=== PATIENT | male | born 2000 | race African-American/Black ===

== ENCOUNTER 2020-12-09 01:37 | Emergency (ER) | payer OTHER ==
--- NOTE | 2020-12-09 02:57 | ED Physician Documentation ---
PD HPI HEENT - Stated complaint Stated Complaint: SINUS PRESURE, SOA - Chief complaint Chief Complaint: Heent - History obtained from History obtained from: Patient - History of Present Illness Timing - onset: How many weeks ago (1.5) Timing - details: Gradual onset Pain level now: 0 Location: Sinuses Improves: Nothing Associated symptoms: Congestion, Rhinorrhea, Headache. No: Fever, Cough Recently seen: Not recently seen - Additional information Additional information: c/o 1.5 weeks of bilateral sinus pain associated with sinus congestion and pressure. intermittent difficulty breathing through his nose. Mild sore throat. he has not had improvement with nasocort, pseudofed PE, claritin, and benadryl. Denies fever, cough. Review of Systems Constitutional: denies: Fever, Chills, Sweats Ears: denies: Ear pain Nose: reports: Rhinorrhea / runny nose, Congestion, Sinus pressure / pain Throat: reports: Sore throat (mild) Respiratory: denies: Dyspnea, Cough PD PAST MEDICAL HISTORY - Past Medical History Past Medical History: No - Present Medications Home Medications: Ambulatory Orders Medication Instructions Recorded Confirmed Amox/Clav 875/125 [Augmentin 1 tablet PO Q12H 10 Days #19 tablet 12/09/20 875/125 Tab] predniSONE [Deltasone] 40 mg PO DAILY 4 Days #8 tablet 12/09/20 - Allergies Allergies/Adverse Reactions: Allergies Allergy/AdvReac Type Severity Reaction Status Date / Time Sulfa (Sulfonamide Allergy Emesis Verified 12/09/20 01:40 Antibiotics) - Living Situation Living Arrangement: reports: At home PD ED PE NORMAL - Vitals Vital signs reviewed: Yes - General General: Alert and oriented X 3, No acute distress, Well developed/nourished - HEENT HEENT: Moist mucous membranes - Neck Neck: Supple, no meningeal sign - Respiratory Respiratory: No respiratory distress, Clear bilaterally PD ED PE EXPANDED - HEENT HEENT: Nasal congestion, Other (bilateral nasal mucosal erythema and edema, left>right. multiple clear vesicles on bilateral nasal mucosa). No: Swollen tonsils Results - Vitals Vitals: Vital Signs - 24 hr 12/09/20 12/09/20 01:40 03:33 Temperature 36.5 C 36.5 C Heart Rate 74 72 Respiratory 16 16 Rate Blood Pressure 120/90 H 120/80 O2 Saturation 100 100 Oxygen O2 Source Room air PD MEDICAL DECISION MAKING - ED course Complexity details: considered differential, d/w patient ED course: patient has had no improvement with conservative measures (OTC medications including decongestant, antihistamine, topical steroid), and he has boggy and erythematous nasal mucosa bilateral with vesicles. augmentin and prednisone given in ED with rx for same, encouraged to continue the OTC medications in combination with these prescriptions. Departure - Departure Disposition: Home, Self Care Clinical Impression: Sinusitis Qualifiers: Sinusitis location: frontal Chronicity: acute Recurrence: non-recurrent Qualified Code(s): J01.10 - Acute frontal sinusitis, unspecified Condition: Good Instructions: ED Sinusitis Abx Tx Prescriptions: Amox/Clav 875/125 [Augmentin 875/125 Tab] 1 tablet PO Q12H 10 Days #19 tablet predniSONE [Deltasone] 40 mg PO DAILY 4 Days #8 tablet Comments: You can also try guiafenesin, an kysa-slq-kshunaw expectorant (such as Mucinex). This loosens phlegm/mucous, and can help promote drainage of clogged sinuses. Oxymetazoline is another jgxv-luh-[id number] medication you can try; it is a nasal spray decongestant. If you use oxymetazoline, limit to 3 days of use, as symptoms can worsen if used for more than this. Continue the decongestant, the nasal spray (nasocort), and antihistamine (claritin or benadryl) Discharge Date/Time: 12/09/20 03:33
[2020-12-09] MEDS ORDERED: predniSONE 20 MG TABLET PO STA (03:17)
[2020-12-09] MEDS ORDERED: AMOX/CLAV 875 MG/125 MG TABLET PO STA (03:18)
[2020-12-09 03:35] VITALS: BP 120/80
== END 2020-12-09 03:33 | disposition home or self-care (01) ==
LOC: ED 01:37
DX: J01.10 Acute frontal sinusitis, unspecified (principal)
CPT/HCPCS: 99282; 99283; A9270; J7512